=== PATIENT | male | born 1970 | race Caucasian/White ===

== ENCOUNTER 2019-09-23 15:12 | Emergency (ER) | payer OTHER ==
[2019-09-23 15:52] VITALS: BP 163/102
--- NOTE | 2019-09-23 16:06 | UC ---
Throat Pain/Nasal Forrest HPI - HPI Summary HPI Summary: Pt presents with c/o nasal congestion and multiple "asthma attacks." over the last 2-3 days. Pt states he has asthma and has been having multiple "attacks" He states that his has newly begun to use, air fresheners and scented candles on a daily basis. - History of Current Complaint Chief Complaint: UCGeneralIllness Stated Complaint: COUGH/SINUS/ HX OF ASTHMA Time Seen by Provider: 09/23/19 15:54 Hx Obtained From: Patient Onset/Duration: Sudden Onset, Lasting Days, Still Present Severity: Moderate Pain Intensity: 0 Cough: Nonproductive Associated Signs & Symptoms: Positive: Wheezing, Nasal Discharge Related History: Seasonal Allergies - Epiglottits Risk Factors Epiglottis Risk Factors: Sudden Onset - Allergies/Home Medications Allergies/Adverse Reactions: Allergies Allergy/AdvReac Type Severity Reaction Status Date / Time No Known Allergies Allergy Verified 09/23/19 15:42 Home Medications: Home Medications LoraTADine TAB(NF) [Claritin 10 MG TAB(NF)] 10 mg PO BID 10/10/14 [History Confirmed 09/23/19] Multivitamin 1 tab PO DAILY 10/10/14 [History Confirmed 09/23/19] Proair Hfa 2 inh INH Q4HR 10/10/14 [History Confirmed 09/23/19] Diphenhydramine HCl [Benadryl] 25 mg PO BEDTIME 03/12/15 [History Confirmed 08/13] Ascorbic Acid TAB* [Vitamin C TAB*] 500 mg PO DAILY 09/23/19 [History Confirmed 09/23/19] Phenylephrine/Dm/Acetaminop/GG [Mucinex Fast-Max Cold-Flu Cplt] 2 tab PO ONCE PRN 09/23/19 [History Confirmed 09/23/19] predniSONE 10 mg TAB [Deltasone 10 MG TAB*] 30 mg PO DAILY #18 tab 09/23/19 [Rx] PMH/Surg Hx/FS Hx/Imm Hx Previously Healthy: Yes Respiratory History: Asthma - Surgical History Surgical History: Yes Surgery Procedure, Year, and Place: JAW CYST REMOVED, 1999, [facility]. TONSILECTOMY. pancreatic polyp removed 01/05 - Family History Known Family History: Positive: Cardiac Disease - Social History Occupation: Employed Full-time Lives: With Family Alcohol Use: Rare Alcohol Amount: wine with dinner Substance Use Type: None Smoking Status (MU): Former Smoker Type: Cigarettes Amount Used/How Often: PACK A DAY34 YEARS AGO Have You Smoked in the Last Year: No - Immunization History Most Recent Influenza Vaccination: Unknown Most Recent Tetanus Shot: Up to date Most Recent Pneumonia Vaccination: never Vaccination Up to Date: Yes Review of Systems All Other Systems Reviewed And Are Negative: Yes Constitutional: Positive: Negative Skin: Positive: Negative Eyes: Positive: Negative ENT: Positive: Nasal Discharge, Sinus Congestion Respiratory: Positive: Shortness Of Breath, Cough, Other - wheezing Cardiovascular: Positive: Negative Gastrointestinal: Positive: Negative Genitourinary: Positive: Negative Motor: Positive: Negative Neurovascular: Positive: Negative Musculoskeletal: Positive: Negative Neurological/Mental Status: Positive: Negative Psychological: Positive: Negative Is Patient Immunocompromised?: No Physical Exam Triage Information Reviewed: Yes Appearance: Ill-Appearing Vital Signs: Initial Vital Signs Temp 97.7 F 09/23/19 15:47 Pulse 89 09/23/19 15:47 Resp 12 09/23/19 15:47 BP 163/102 09/23/19 15:47 Pulse Ox 98 09/23/19 15:47 Vital Signs Reviewed: Yes Eye Exam: Normal ENT: Positive: Nasal congestion Dental Exam: Normal Respiratory: Positive: Wheezing Cardiovascular Exam: Normal Musculoskeletal Exam: Normal Neurological Exam: Normal Psychological Exam: Normal Skin Exam: Normal Throat Pain/Nasal Course/Dx - Differential Dx/Diagnosis Differential Diagnosis/HQI/PQRI: URI Provider Diagnosis: Allergic rhinitis, Cough in adult Discharge ED - Sign-Out/Discharge Documenting (check all that apply): Patient Departure All imaging exams completed and their final reports reviewed: No Studies - Discharge Plan Condition: Stable Disposition: HOME Prescriptions: predniSONE 10 mg TAB [Deltasone 10 MG TAB*] 30 mg PO DAILY #18 tab Patient Education Materials: Allergic Rhinitis (ED), Acute Cough (ED) Referrals: Gosia Angeles MD [Primary Care Provider] - As Soon As Possible Additional Instructions: Please note that your blood pressure was elevated at today's visit. Please follow up with your PCP with this finding. - Billing Disposition and Condition Condition: STABLE Disposition: Home
== END 2019-09-23 16:16 | disposition home or self-care (01) ==
LOC: UCCORT 15:12
DX: J45.909 Unspecified asthma, uncomplicated (principal); R05 Cough; Z87.891 Personal history of nicotine dependence
CPT/HCPCS: 99212; G0463